=== PATIENT | male | born 1995 | race Caucasian/White ===

== ENCOUNTER 2017-10-26 20:30 | Outpatient (CLI) | payer BC, OTHER | END 2017-10-26 20:31 | disposition home or self-care (01) | LOC: SLEEPLAB 20:30 | PROVIDERS: ATTEND Family Medicine Sports Medicine | DX: G47.33 Obstructive sleep apnea (adult) (pediatric) (principal); R53.83 Other fatigue | CPT/HCPCS: 95811 ==

== ENCOUNTER 2019-06-20 06:09 | Day surgery (SDC) | payer OTHER ==
[2019-06-19 14:23] VITALS: BMI 35.3
[2019-06-20] MEDS ORDERED: Fentanyl 100 MCG/2 ML VIAL ONE ×2 (06:50→08:54)
[2019-06-20] MEDS ORDERED: HYDROmorphone 0.5 MG/0.5 ML SYRINGE ONE (06:50)
[2019-06-20 06:55] LABS: #Basophils 0.1 thou/uL (0.0-0.2); #Eosinphils 0.1 thou/uL (0.0-0.7); #Lymphocytes 1.9 thou/uL (1.20-3.40); #Monocytes 0.7 thou/uL (0.11-0.59); #Neutrophils 2.9 thou/uL (1.40-6.50); %Basophils 1.3 % (0.0-1.0); %Eosinophils 2.3 % (0.0-10.0); %Lymphocytes 33.1 % (21.0-51.0); %Neutrophils 51.3 % (42.0-75.0); Hemoglobin 15.5 g/dL (14.0-18.0); Mean Corpuscular HGB CONC 33.9 g/dL (32.0-36.0); Mean Corpuscular Hemoglobin 28.9 pg (27.0-31.0); Mean Corpuscular Volume 85.3 fL (78.0-98.0); Mean Platelet Volume 7.2 fL (7.4-10.4); Platelet Count 226 thou/uL (130-400); RBC Distribution Width 11.5 % (11.5-14.5); Red Blood Cell (RBC) Count 5.37 mill/uL (4.70-6.10); White Blood Cell (WBC) Count 5.7 thou/uL (4.8-10.8)
[2019-06-20] MEDS ORDERED: Lidocaine 1% w/Epinephrine 1:100K 20 ML VIAL ONE (06:55)
[2019-06-20] MEDS ORDERED: Bupivacaine 0.25% HCL 30 ML VIAL ONE (06:55)
[2019-06-20] MEDS ORDERED: Midazolam HCl 2 mg/2 ml Vial ONE (07:02)
--- NOTE | 2019-06-20 09:29 | OP ---
DATE OF PROCEDURE: 06/20/2019 PREOPERATIVE DIAGNOSIS: Pilonidal cyst with abscess. PROCEDURE PERFORMED: Pilonidal cystectomy. INDICATIONS: This is a 23-year-old male, who has been dealing removed with multiple infections in his pilonidal cyst, multiple episodes of antibiotic treatment, that any time he stops the antibiotics, it flares up. FINDINGS: About a 7-cm cystic cavity containing lots of hair. The superior aspect was abscessed. DESCRIPTION OF PROCEDURE: After an informed consent was obtained, the patient was taken to the operating room, given general endotracheal anesthesia, placed in the prone richard-knife position. His buttock cheeks were spread apart with tape. The hair was removed. The area was completely cleansed with Betadine. Local anesthesia infiltrated subcutaneously and deep. An asymmetric elliptical incision was performed more so on the right than the left. The cyst was excised totally. There was some purulent fluid superiorly. The cultures were obtained. The cyst and hair were fully excised. Hemostasis was achieved with electrocautery. The cavity was thoroughly irrigated with saline. Then, a marsupialization was performed between the dermis in the base of the cyst with interrupted 3-0 chromic suture. Sterile bandage applied. The patient tolerated the procedure well, transferred to Recovery in good condition. Sponge and needle count verified correct x2. Job ID: [id number]
[2019-06-20] MEDS ORDERED: Lidocaine 1% PF 5 ML VIAL ONE (09:55)
[2019-06-20] MEDS ORDERED: Dexamethasone 20 MG/5 ML VIAL ONE (09:55)
[2019-06-20] MEDS ORDERED: Glycopyrrolate 0.2 MG/ML 5 ML SYRINGE ONE (09:55)
[2019-06-20] MEDS ORDERED: Ondansetron PF 4 MG/2 ML Vial ONE (09:55)
[2019-06-20] MEDS ORDERED: PROPOFOL 200 MG/20 ML VIAL ONE (09:55)
[2019-06-20] MEDS ORDERED: Rocuronium Bromide 10 MG/ML (10ML VIAL) ONE (09:55)
[2019-06-20] MEDS ORDERED: HYDROcodone/Acetaminophen 5/325 mg Tablet ONE (10:03)
== END 2019-06-20 11:00 | disposition home or self-care (01) ==
LOC: SDC 06:09
PROVIDERS: ATTEND Surgery
PROC: 0HB8XZZ Excision of Buttock Skin, External Approach (ICD-10-PCS; principal; 2019-06-20)
DX: L05.01 Pilonidal cyst with abscess (principal)
CPT/HCPCS: 36415; 85025; 87070; 87205; 88304; J0690; J1100; J1170; J2001; J2250; J2405; J2704; J3010; S0020

== ENCOUNTER 2020-04-05 17:30 | Outpatient (CLI) | payer OTHER | END 2020-04-05 17:31 | disposition home or self-care (01) | LOC: SLEEPLAB 17:30 | PROVIDERS: ATTEND Internal Medicine Critical Care Medicine | DX: G47.33 Obstructive sleep apnea (adult) (pediatric) (principal) | CPT/HCPCS: 95806 ==